=== PATIENT | female | born 1995 | race American Indian/Alaskan Native ===

== ENCOUNTER 2017-10-12 11:21 | Emergency (ER) | payer OTHER, BC ==
[2017-10-12 11:35] VITALS: BP 130/82; PULSE 67; RESP 18; TEMP 97.8; O2SAT 100
[2017-10-12 11:36] VITALS: BMI 26.6
[2017-10-12] MEDS ORDERED: TDAP Vaccine 0.5 mL Syr IM ONE (11:55)
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
== END 2017-10-12 12:25 | disposition home or self-care (01) ==
LOC: MERGE 11:21 → ED 11:21
DX: S61.251A Open bite of left index finger without damage to nail, initial encounter (principal); Y04.1XXA Assault by human bite, initial encounter; Z23 Encounter for immunization